=== PATIENT | female | born 1940 | race Caucasian/White ===

== ENCOUNTER 2017-07-27 11:48 | Emergency (ER) | payer MEDICARE ==
[~2017-07-27 11:48] MED LIST: ACETAMINOPHEN500 M4 PO; ALBUTEROL SULF8.5 G2 INH; ASPIR 8181 MG; ASPIRIN EC81 MG PO; ASPIRIN325 M3 PO; C-PAP; CALCIUM; CALCIUM 500 +1 EAC9 PO; CHLORTHALIDONE25 M1 PO; CHO; COZAAR25 M1 PO; DIOVAN/HCTZ; FISH OIL; FISH OIL 11000 MG/CA PO; FLONASE ALLERG9.9 ML; GLUCOSAMINE; GLUCOSAMINE SU PO; K-TAB ER20 ME1 PO; LEXAPRO; LEXAPRO10 M2 PO; LIDODERM700 MG TP; LIPITOR20 M1 PO; MOBIC15 M2 PO; MVI; NAPROXYN; PRILOSEC20 M1 PO; TOPROL XL25 M1 PO; TYLENOL325 M2 PO; ULTRAM50 M1 PO; VITAMIN D31000 UNI4 PO; WOMEN'S 50+ DA1 EAC1 PO
== END 2017-07-27 14:01 ==
LOC: EDMED 11:48
DX: S01.511A Laceration without foreign body of lip, initial encounter (principal); S80.02XA Contusion of left knee, initial encounter; S00.33XA Contusion of nose, initial encounter; Z23 Encounter for immunization; W01.0XXA Fall on same level from slipping, tripping and stumbling without subsequent striking against object, initial encounter; Y92.481 Parking lot as the place of occurrence of the external cause